=== PATIENT | male | born 1985 | race African-American/Black ===

== ENCOUNTER 2016-11-22 12:48 | Emergency (ER) | payer SELFPAY ==
[~2016-11-22] VITALS: Ht 182.9 cm; Wt 77.1 kg
[2016-11-22 13:03] VITALS: BP 107/72
== END 2016-11-22 13:31 | disposition home or self-care (01) ==
LOC: ER 12:50
DX: K08.89 Other specified disorders of teeth and supporting structures (principal)
CPT/HCPCS: 99283; A4606; Z7610